=== PATIENT | female | born 1955 | race Caucasian/White ===

== ENCOUNTER → 2021-07-17 | Outpatient (CLI) | payer MEDICARE ==
--- NOTE | 2021-07-18 10:31 | ECHOF ---
Referral Reason:I51.7 cardiomegaly MEASUREMENTS -------- HEIGHT: 165.1 cm WEIGHT: 78.0 kg BP: IVSd: 1.1 cm (0.6 - 1.1) LVIDd: 5.1 cm (3.9 - 5.3) LVPWd: 1.1 cm (0.6 - 1.1) IVSs: 2.1 cm LVIDs: 2.3 cm LVPWs: 2.1 cm LAESV Index (A-L): 18.42 ml/m Ao Diam: 2.8 cm (2.0 - 3.7) AV Cusp: 1.7 cm (1.5 - 2.6) LA Diam: 3.5 cm (2.7 - 3.8) MV EXCURSION: 10.412 mm (> 18.000) MV EF SLOPE: 52 mm/s (70 - 150) EPSS: 0.7 cm MV E Jayson: 1.21 m/s MV DecT: 268 ms MV A Jayson: 1.03 m/s MV E/A Ratio: 1.18 AV maxP.16 mmHg AV meanP.21 mmHg RAP: 5.00 mmHg RVSP: 31.05 mmHg FINDINGS -------- This was a technically adequate study. The left ventricular size is normal. Left ventricular wall thickness is normal. Overall left vent ricular systolic function is normal with, an EF between 55 - 60 %. Normal LAP Grade 1 Diastolic Dys function. The right ventricle is normal in size. The left atrial size is normal. Normal LA size by volume 22+/-6 ml/m2. The right atrial size is normal. Aortic valve is trileaflet and is mildly thickened. There is mild aortic stenosis present. Peak/m imtiaz gradient across the Aortic Valve is 17.16mmHg / 10.21mmHg. Can't exclude possible Bicuspid Aov. The mitral valve is normal. The mitral valve leaflets are mildly thickened. Mild mitral regurgita tion is present. The tricuspid valve appears structurally normal. Mild tricuspid regurgitation present. Right vent ricular systolic pressure is normal at < 35 mmHg. There is no pulmonic regurgitation present. The aortic root size is normal. Normal inferior vena cava with normal inspiratory collapse consistent with estimated right atrial pre ssure of 5 mmHg. There is no pericardial effusion. CONCLUSIONS -------- 1. The left ventricular size is normal. 2. Left ventricular wall thickness is normal. 3. Overall left ventricular systolic function is normal with, an EF between 55 - 60 %. 4. Normal LAP Grade 1 Diastolic Dysfunction. 5. Aortic valve is trileaflet and is mildly thickened. 6. There is mild aortic stenosis present. 7. Peak/mean gradient across the Aortic Valve is 17.16mmHg / 10.21mmHg. 8. Can't exclude possible Bicuspid Aov. 9. The mitral valve leaflets are mildly thickened. 10. Mild mitral regurgitation is present. 11. Mild tricuspid regurgitation present. 12. There is no pericardial effusion. NIPPLE THREADER: Brooklyn Lyman RDCS
== END | disposition home or self-care (01) ==
LOC: RADECHMAIN 15:48
PROVIDERS: ATTEND Family Medicine
DX: I08.3 Combined rheumatic disorders of mitral, aortic and tricuspid valves (principal)
CPT/HCPCS: 93306

== ENCOUNTER → 2022-08-05 | Outpatient (CLI) | payer MEDICARE ==
--- NOTE | 2022-08-05 14:14 | CA ---
Transthoracic Echo Report Name: Yumiko Freeman Age: 67 Gender: F : 1955 Exam Date: 08/05/2022 12:51 Exam Location: [place] [facility] Ht (in): 65 Wt (lb): 158 Ordering Physician: Lisbet Gil DO Attending/Referring Phys: [id number], Jeffery Sheeter [employer] Operator Ankita Gil RDCS Procedure CPT: Indications: i35.0 Cardiac Hx: Technical Quality: Good Contrast 1: Total Dose (mL): Contrast 2: Total Dose (mL): MEASUREMENTS (Male / Female) Normal Values 2D ECHO LV Diastolic Diameter PLAX 4.3 cm 4.2 - 5.9 / 3.9 - 5.3 cm LV Systolic Diameter PLAX 3.2 cm IVS Diastolic Thickness 1.0 cm 0.6 - 1.0 / 0.6 - 0.9 cm LVPW Diastolic Thickness 1.0 cm 0.6 - 1.0 / 0.6 - 0.9 cm LV Relative Wall Thickness 0.5 RV Internal Dim ED PLAX 3.5 cm LVOT Diameter 2.0 cm LA Systolic Diameter LX 3.7 cm 3.0 - 4.0 / 2.7 - 3.8 cm LV Diastolic Volume MOD BP 81.5 cm??? 67 - 155 / 56 - 104 cm??? LV Systolic Volume MOD BP 34.9 cm??? 22 - 58 / 19 - 49 cm??? LV Ejection Fraction MOD BP 57.2 % >= 55 % LV Diastolic Volume MOD 4C 91.2 cm??? LV Systolic Volume MOD 4C 43.5 cm??? LV Ejection Fraction MOD 4C 52.3 % LV Diastolic Length 4C 7.9 cm LV Systolic Length 4C 6.8 cm LV Diastolic Volume MOD 2C 76.8 cm??? LV Systolic Volume MOD 2C 32.0 cm??? LV Ejection Fraction MOD 2C 58.3 % LV Diastolic Length 2C 7.1 cm LV Systolic Length 2C 5.8 cm LA Volume 72.8 cm??? 18 - 58 / 22 - 52 cm??? M-MODE Aortic Root Diameter MM 3.0 cm MV E Point Septal Separation 0.7 cm AV Cusp Separation MM 1.6 cm DOPPLER AV Peak Velocity 226.9 cm/s AV Peak Gradient 20.6 mmHg AV Mean Velocity 148.3 cm/s AV Mean Gradient 10.2 mmHg AV Velocity Time Integral 55.1 cm AI Peak Velocity 352.8 cm/s AI Peak Gradient 49.8 mmHg AI Pressure Half Time 974.8 ms LVOT Peak Velocity 138.2 cm/s LVOT Peak Gradient 7.6 mmHg AV Area Cont Eq pk 1.8 cm??? MV Area PHT 2.6 cm??? Mitral E Point Velocity 128.9 cm/s Mitral A Point Velocity 122.5 cm/s Mitral E to A Ratio 1.1 MV Deceleration Time 296.7 ms MV E' Velocity 5.8 cm/s Mitral E to MV E' Ratio 22.1 TR Peak Velocity 265.5 cm/s TR Peak Gradient 28.2 mmHg Right Ventricular Systolic Press 33.0 mmHg FINDINGS Left Ventricle Left ventricular ejection fraction is estimated at 55-60 %. Left ventricular cavity size normal. Borderline left ventricular hypertrophy. Normal left ventricular wall motion. Right Ventricle Mild right ventricular dilatation. Right ventricular systolic pressure estimated at 33 mm hg. Right Atrium Normal right atrial size. Left Atrium Moderately increased left atrial volume. Mitral Valve Mitral valve thickened. Moderate mitral annular calcification. Mild mitral regurgitation. Aortic Valve Moderate Aortic valve sclerosis. Mild aortic stenosis with a peak gradient of 21 mmHg and a mean gradient of 10 mmHg. AOV area 1.8 cm. Mild aortic regurgitation. Tricuspid Valve Structurally normal tricuspid valve. Mild to moderate tricuspid regurgitation. Pulmonic Valve Structurally normal pulmonic valve. Trace pulmonic regurgitation. Pericardium Normal pericardium. No pericardial effusion. Aorta Normal size aortic root and proximal ascending aorta. CONCLUSIONS 1. Normal left ventricle size and systolic function 2. Mild mitral was mild to moderate tricuspid regurgitation 3. Mild aortic regurgitation and aortic stenosis Previewed by: Dr. Rodrigue Wan MD (Electronically Signed) Final Date: 05 August 2022 14:13
== END | disposition home or self-care (01) ==
LOC: RADECHMAIN 12:29
PROVIDERS: ATTEND Family Medicine
DX: I08.3 Combined rheumatic disorders of mitral, aortic and tricuspid valves (principal)
CPT/HCPCS: 93306

== ENCOUNTER → 2023-11-24 | Outpatient (CLI) | payer MEDICARE ==
--- NOTE | 2023-11-25 08:06 | CA ---
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 LV Systolic Volume MOD 4C 31.9 cm??? LV Ejection Fraction MOD 4C 55.4 % LV Cardiac Index MOD 4C 1140.1 cm???/min???m??? LV Diastolic Length 4C 7.1 cm LV Systolic Length 4C 6.1 cm LV Diastolic Volume MOD 2C 82.8 cm??? LV Systolic Volume MOD 2C 34.3 cm??? LV Ejection Fraction MOD 2C 58.5 % LV Cardiac Index MOD 2C 1394.7 cm???/min???m??? LV Diastolic Length 2C 7.1 cm LV Systolic Length 2C 6.2 cm M-MODE Aortic Root Diameter MM 2.6 cm LA Systolic Diameter MM 1.7 cm LA Ao Ratio MM 0.6 DOPPLER AV Peak Velocity 246.8 cm/s AV Peak Gradient 24.4 mmHg AV Mean Velocity 187.5 cm/s AV Mean Gradient 14.9 mmHg AV Velocity Time Integral 67.5 cm AI Peak Velocity 277.4 cm/s AI Peak Gradient 30.8 mmHg AI Pressure Half Time 1330.9 ms LVOT Peak Velocity 139.0 cm/s LVOT Peak Gradient 7.7 mmHg LVOT Velocity Time Integral 33.4 cm LVOT Stroke Volume 117.1 cm??? LVOT Stroke Volume Index 67.1 ml/m??? LVOT Cardiac Index 3371.2 cm???/min???m??? AV Area Cont Eq vti 1.7 cm??? AV Area Cont Eq pk 2.0 cm??? Mitral E Point Velocity 110.6 cm/s Mitral A Point Velocity 115.5 cm/s Mitral E to A Ratio 1.0 MV Deceleration Time 312.5 ms MV E' Velocity 4.4 cm/s Mitral E to MV E' Ratio 25.1 TR Peak Velocity 209.8 cm/s TR Peak Gradient 17.6 mmHg Right Ventricular Systolic Press 36.0 mmHg FINDINGS Left Ventricle Left ventricular ejection fraction is estimated at 55-60 %. Left ventricular cavity size normal. Mildly increased septal wall thickness. Mildly increased posterior wall thickness. Normal left ventricular wall motion. Right Ventricle Normal right ventricular size and function. Mild pulmonary hypertension. Right Atrium Normal right atrial size. No right atrial thrombus or mass seen. Left Atrium Normal left atrial size. No left atrial thrombus or mass present. Mitral Valve Mitral valve thickened. Moderate mitral annular calcification. Trace to mild mitral regurgitation. Aortic Valve Trileaflet aortic valve. Diffuse thickening of the aortic valve cusps with reduced excursion. Mild aortic stenosis with a peak gradient of 24 mmHg and a mean gradient of 15 mmHg. Mild aortic regurgitation. Tricuspid Valve Structurally normal tricuspid valve. Mild tricuspid regurgitation. Pulmonic Valve Structurally normal pulmonic valve. No pulmonic regurgitation. Pericardium No pericardial effusion. Aorta Normal size aortic root and proximal ascending aorta. CONCLUSIONS Left ventricular ejection fraction 55-60% RVSP 36 Trace to mild mitral regurgitation Mild aortic stenosis with mean gradient 15 mmHg Mild aortic regurgitation Mild tricuspid regurgitation Previewed by: Dr. Chucho Liu DO (Electronically Signed) Final Date: 25 November 2023 08:05
== END | disposition home or self-care (01) ==
LOC: RADECHMAIN 16:36
PROVIDERS: ATTEND Family Medicine
DX: I08.2 Rheumatic disorders of both aortic and tricuspid valves (principal)
CPT/HCPCS: 93306